=== PATIENT | male | born 1960 ===

== ENCOUNTER 2018-06-03 14:26 | Inpatient (IN) | payer OTHER, SELFPAY ==
[~2018-06-03 14:26] MED LIST: ISOVUE-370 76%-LOCM 1 ML ONE; Lidocaine 1% PF 5 ML VIAL ONE; PHENYLEPHRINE-NS 100 MCG/ML 10 ML SYRINGE ONE; PROPOFOL 200 MG/20 ML VIAL ONE; Succinylcholine Chloride 20 MG/ML 10 ml SYRINGE FS ONE
[2018-06-03] MEDS ORDERED: CEFAZOLIN 1 GM VIAL ONE (14:35)
[2018-06-03] MEDS ORDERED: Gentamicin 80 MG/2 ML VIAL ONE ×2 (14:36→15:01)
[2018-06-03 14:39] LABS: Base Excess-Venous -5.2 mmol/L (0 (+/- 2.5)); Bicarbonate (HCO3v) 21.1 mmol/L (1.0-85.0); CO2 Tension (PvCO2) 42.5 mmHg (41.0-51.0); Calcium, Ionized 1.06 mmol/L (1.12-1.32); Hemoglobin - Calc 15.5 g/dL (12.0-18.0); O2 Tension (PvO2) 24.4 mmHg (35.0-45.0); Potassium 3.2 mmol/L (3.4-4.7); T. Carbon Dioxide 22.4 mmol/L (1.0-85.0); pH (Venous) 7.303 (7.35-7.45); vO2 Saturation-calc 37.8 % (94-98)
[2018-06-03] MEDS ORDERED: Adacel (T-DAP) 0.5 ML VIAL ONE ×2 (14:41→14:42)
[2018-06-03] MEDS ORDERED: Fentanyl 100 MCG/2 ML VIAL ONE ×3 (14:43→18:43)
[2018-06-03] MEDS ORDERED: Dextrose 50% Abboject 50 ML SYRINGE SLOW IVP PRN (14:51)
[2018-06-03] MEDS ORDERED: Ondansetron HCl/PF 4 MG/2 ML Vial IVP PRN ×2 (14:51→18:49)
[2018-06-03] MEDS ORDERED: Ondansetron ODT 4 MG TAB PO PRN (14:51)
[2018-06-03] MEDS ORDERED: Dextrose 5% in Water 1,000 ML IV PRN (14:51)
[2018-06-03 14:52] LABS: #Eosinphils 0.1 thou/uL (0.0-0.7); #Lymphocytes 1.6 thou/uL (1.20-3.40); #Monocytes 1.2 thou/uL (0.11-0.59); %Basophils 0.3 % (0.0-1.0); %Eosinophils 0.6 % (0.0-10.0); %Lymphocytes 9.1 % (21.0-51.0); %Monocytes 6.7 % (0.0-10.0); %Neutrophils 83.4 % (42.0-75.0); Hemoglobin 13.9 g/dL (14.0-18.0); Mean Corpuscular HGB CONC 32.9 g/dL (32.0-36.0); Mean Corpuscular Hemoglobin 29.2 pg (27.0-31.0); Mean Corpuscular Volume 88.9 fL (78.0-98.0); Platelet Count 157 thou/uL (130-400); RBC Distribution Width 13.4 % (11.5-14.5); Red Blood Cell (RBC) Count 4.76 mill/uL (4.70-6.10)
--- NOTE | 2018-06-03 14:57 | CT ---
NONCONTRAST HEAD CT: History: Patient fell from a height of approximately 12 ft. Level II trauma. Comparison: None. FINDINGS: Slightly limited evaluation due to motion degradation. No parenchymal hemorrhage. No extraaxial hemat enrrique. No midline shift. Basilar cisterns are patent. Brain volume is age appropriate. Cortical fenton wh ite matter differentiation is preserved. Ventricles and sulci are patent and symmetric. Calvarium is intact. Adequate aeration of the sinuses and mastoid air cells. Old right lamina papyrac ea fracture and old right orbital floor fracture. IMPRESSION: No intracranial post-traumatic sequellae. POS: [facility]
[2018-06-03] MEDS ORDERED: Penicillin G Potassium 5 MILL.UNITS in Sodium Chloride 0.9% 100 ML IVPB SCH (15:00)
[2018-06-03] MEDS ORDERED: Lidocaine 1% w/Epinephrine 1:100K 20 ML VIAL ONE (15:02)
[2018-06-03] MEDS ORDERED: Calcium Chloride 1 GM/10 ML Abboject SYRINGE ONE (15:07)
--- NOTE | 2018-06-03 15:13 | RAD ---
CHEST ONE VIEW: History: Patient fell from a ladder. Level II trauma. Comparison: None. FINDINGS: One view chest: Normal cardiac silhouette. The pulmonary vessels and hilum are normal. Costophrenic angles are clear. No consolidation or mass. Lungs are hyperinflated. Chronic changes are noted. There are old left rib fractures. No pneumothorax on the supine projection. IMPRESSION: No acute cardiopulmonary process. POS: [facility]
--- NOTE | 2018-06-03 15:32 | RAD ---
ONE VIEW PELVIS: 06/03/18 HISTORY: Fall. Level II trauma. Pain. COMPARISON: None. FINDINGS: Bony pelvis is intact. Sacral ala are preserved. Contour of both femoral heads are maintained. Howeve r, there is a nondisplaced femoral neck fracture on the left. Right hip is unremarkable on this singl e projection. IMPRESSION: Left femoral neck fracture. POS: [facility]
--- NOTE | 2018-06-03 15:32 | CT ---
CT CERVICAL SPINE WITHOUT CONTRAST: HISTORY: The patient fell from a height of approximately 12 feet, off a ladder. Level II trauma. Post trauma tic pain. COMPARISON: None. TECHNIQUE: CT cervical spine is performed without contrast. Reformatted images are submitted for interpretation . FINDINGS: No craniocervical dissociation. The lateral masses of C1 and C2 articulate appropriately. There is appropriate articulation of the facets. There are degenerative changes of the facets without signifi cant malalignment. Intact odontoid process. Soft tissue neck structures are unremarkable. Varying degrees of central canal stenosis and foramina l narrowing, on the basis of degenerative change. Evaluation limited by technique. The upper mediastinum and lung apices are unremarkable. Cervical spine vertebral body height is maintained. No cervical spine fracture. IMPRESSION: No cervical spine fracture. The results of the head and cervical spine CT were discussed with Dr. Salas on 06/03/2018 at 2:56 p.m . CODE RONNIE POS: [facility]
--- NOTE | 2018-06-03 15:50 | CT ---
CHEST CT SCAN WITH IV CONTRAST ABDOMEN AND PELVIC CT SCAN WITH IV CONTRAST THORACIC SPINE CT SCAN WITH IV CONTRAST LUMBAR SPINE CT SCAN WITH IV CONTRAST 06/03/18 HISTORY: 57-year-old male with history of level II trauma, injury following a 12 foot fall off a ladder. CHEST, ABDOMEN AND PELVIC CT SCAN WITH IV CONTRAST: There is some chronic changes in both lungs, evidence for some emphysema and honeycombing evidence fo r chronic interstitial lung disease. No pneumothorax or pleural effusions. The mediastinum is unremar kable. No mediastinal hematoma. The liver, pancreas, gallbladder, spleen, and kidneys are unremarkable. Adrenal glands are unremarkab le. No evidence for free intraperitoneal fluid or retroperitoneal hematoma within the abdomen or pelv is. Normal appearing appendix. There is noted to be a minimally displaced oblique fracture through th e left femoral neck. IMPRESSION: Oblique very minimally displaced left femoral neck fracture. Chronic lung changes. No evidence for ot her significant acute posttraumatic process in the chest, abdomen or pelvis. THORACIC SPINE CT SCAN WITH IV CONTRAST LIMITED: Disc osteophytosis without fracture or dislocation. LUMBAR SPINE CT SCAN WITH IV CONTRAST LIMITED: Evidence for lumbar spondylosis. No acute fracture or dislocation. Report was given to Dr. Salas at 3:10 p.m. Code CR POS: [facility]
--- NOTE | 2018-06-03 15:52 | CON ---
DATE OF CONSULTATION: 06/03/2018 HISTORY OF PRESENT ILLNESS: We were asked by Trauma to see patient, he was trying to adjust an antenna on his roof, fell off the ladder 12-15 feet, does not recall the fall, but ended up crawling into his house to call for help. It was found that when he came in, he had a left femoral neck fracture and left open femur fracture. The patient currently is in trauma room, getting worked up imaging studies. He is able to answer all questions appropriately. He knows person, place, and time. He is in a significant amount of pain. The patient states his health is good. He has good sensations down the fractured leg. PAST MEDICAL HISTORY: Bleeding ulcer with no further followup. The patient does not see a doctor regularly. PAST SURGICAL HISTORY: "Abdominal Ulcer Patch" MEDICATIONS: None. ALLERGIES: None. FAMILY HISTORY: Noncontributory. SOCIAL HISTORY: No alcohol. Does smoke about a pack a day. Otherwise, he feels he is in a reasonably good health and only sees a doctor when problems arise. REVIEW OF SYSTEMS: No shortness of breath, chest pain. His only main complaint that he is a little chilled right now, he is nervous and he also has some significant left lower extremity pain, which is obvious. Rest of review of systems negative. PHYSICAL EXAMINATION: GENERAL: Well-nourished male, in mild distress. Speech clear, fluent, oriented. HEENT: He does have a symmetric face. Tongue midline. He does have a 1-2 cm laceration on his chin that has been repaired by Trauma. NECK: Feels supple. He is currently helped change out his cervical collar from trauma collar to an [place] collar. EXTREMITY: Upper extremity: He is moving these well, equal size, shape, symmetry normal bulk and tone. Left lower extremity: However, rotated, shortened and there is an open wound, but a hand's width above his knee. He has been given antibiotics by Dr. Toth for his open fracture. DP, PT pulses are equal and symmetric. He is able to move that left lower extremity, his toes , but it is quite a bit of pain in doing so. ASSESSMENT: 1. Fall 2. Open femur fracture on the left with a femoral neck fracture. PLAN: I spoke with patient. We will get him consented. We plan to do an external fixator with a washout of the open fracture and plan on putting some percutaneous screws into his femoral neck fracture stabilizing that and in 48 hours we plan to go back and wash out his wound and placed an intramedullary femoral nail. The patient is amenable to go forth with surgery. We will continue the 3 courses of antibiotics. He has gone through his stay for wound protection and infection prophylaxis. I have explained the risks and benefits of surgery and again he is amenable to go forth with surgery. Trauma will follow the patient for medical management. We have reviewed the x-rays and they are as above stated. MIGUEL ÁNGEL
--- NOTE | 2018-06-03 15:54 | RAD ---
RADIOGRAPH LEFT KNEE 2 VIEWS: 06/03/18 HISTORY: 57-year-old male status post acute traumatic injury to the left knee due to fall from height. FINDINGS: There is no dislocation. There is no evidence of fracture; but in general, a 3 or 4 view radiograph o f the knee is recommended to increase the sensitivity for the detection of nondisplaced and minimally displaced fractures. There is thickening of the patellar tendon. There is a suprapatellar soft tissu e density which could be hemarthrosis or joint effusion. There is edema in Hoffa's fat pad. Mild deg enerative changes at the patellofemoral compartment. Medial and lateral compartment joint spaces are maintained. IMPRESSION: 1. No fracture identified. 2. Suprapatellar density which could be a joint effusion or hemarthrosis. 3. Probable soft tissue injury in the region of the patellar tendon. POS: [facility]
--- NOTE | 2018-06-03 15:56 | RAD ---
TWO VIEWS LEFT HIP: 06/03/18 HISTORY: Level II trauma. Fall. FINDINGS: Nondisplaced left subcapital femoral fracture. Displaced one shaft width fracture involving the left femoral diaphysis with small fragmentation. Subcu air suggest a probable open fracture. IMPRESSION: 1. Open fracture of the left femoral diaphysis. 2. Left femoral neck fracture. POS: [facility]
[2018-06-03 15:58] LABS: INR-International Normal Ratio 1.1; PTT 30.2 SEC (22.9-36.1); Prothrombin Time 14.3 SEC (12.0-14.7)
[2018-06-03] MEDS ORDERED: Midazolam HCl 2 mg/2 ml Vial ONE (16:00)
[2018-06-03] MEDS ORDERED: Tobramycin Sulfate 1.2 GM VIAL ONE ×2 (16:02→16:03)
[2018-06-03] MEDS ORDERED: Neomycin-Polymyxin 1 ML AMP ONE ×2 (16:13→16:32)
--- NOTE | 2018-06-03 16:25 | HP ---
DATE OF ADMISSION: 06/03/2018 HISTORY OF PRESENT ILLNESS: Mr. Anne is a 57-year-old man who apparently fell off of a l adder landing approximately 12 feet to his left side. The patient suffered a brief loss of conscious ness. He was transported by ground EMS to [facility]. He arrived within 1 hour of the fall. He was complaining of severe left-sided hip and leg pain. [place] coma scale upon arrival is noted at 15. The patient was moving all extremities and following commands. PAST MEDICAL HISTORY: Remarkable for peptic ulcerative disease. SURGICAL HISTORY: Pertinent for exploratory laparotomy and repair of a bleeding peptic ulcer. SOCIAL HISTORY: The patient is and lives at home with his . 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 He admits to smoking 1 pack of cigarettes per day, has done so for over 35 years. Denies any et hanol or illicit drug abuse. FAMILY HISTORY: Noncontributory for this patient's age. PREHOSPITAL MEDICATION: He takes Aleve occasionally for arthritic disease. ALLERGIES: Patient denies any known drug allergies. REVIEW OF SYSTEMS: Ten point review of systems essentially unremarkable except for as stated in past medical history and chief complaint. PHYSICAL EXAMINATION: GENERAL: This reveals a 57-year-old normally developed man who is otherwise coherent and interactive and appears stated age. The patient is alert and oriented x3. Patient appeared to be in the modera te acute distress secondary to severe lower extremity pain. VITAL SIGNS: Initial vital signs includes blood pressure 123/75, pulse 67, respiratory rate is 18, t emperature 97.4 degrees Fahrenheit, oxygen saturation 97% on room air. HEENT: Examination reveals normocephalic and atraumatic. The pupils are equal, round, reactive to l ight and accommodation. Extraocular muscles are intact bilaterally. No sclerae icterus is present. Oral mucosa is pink and moist. No lesions noted. He has a 3 cm chin laceration which was not bleed ing at the time of my evaluation. CHEST: Chest wall is stable. No gross deformities or step-offs present. HEART: Reveals regular rate and rhythm, no murmurs or gallops auscultated. LUNGS: Clear to auscultation bilaterally. Breathing is unlabored. ABDOMEN: Soft, nontender and nondistended. Bowel sounds in all four quadrants appear normoactive. Liver and spleen nonpalpable below costal margin. Pelvis is stable. He has point tenderness to the left pelvis which is consistent with fracture as noted in subsequent x-ray. GENITOURINARY: Examination reveals bilateral descended testicles and normal male genitalia. He has no blood in his urethral meatus. There was no ecchymosis or hematoma of the scrotum or perineum. EXTREMITIES: Reveals 2+ radial and pedal pulses bilaterally. He has no ankle edema present. The le ft leg is shortened. He has a gross deformity of the left femur corresponding to mid shaft, open fem ur fracture with gross contamination with debris. He also has point tenderness in this palpation of the left pelvis. MUSCULOSKELETAL: Examination reveals 5/5 muscle strength in bilateral upper and right lower extremit ies. Range of motion about the left lower extremity is restricted due to painful deformities. Thora cic and lumbar spine nontender to palpation. Cervical spine was maintained in neutral position due t o distracting injuries. Palpation of the cervical spine reveals no midline tenderness. NEUROLOGIC: Examination reveals no focal neurologic deficits present. PERTINENT LABORATORY DATA: Today includes CBC with 18,000 white blood cells, hemoglobin and hematocr it 13.9 and 42.4 respectively, platelet count is 157,000. Venous blood gas; pH is 7.3, bicarbonate is 21, pCO2 is 42.5. Venous oxygen saturation is 37.8%. Ba se excess is negative 5.2. Metabolic profile: Sodium 139, potassium 3.2, chloride is 106, bicarbona te is 12, creatinine is 1.23, ionized calcium is 1.06, glucose is 115. IMAGING DATA: I have personally reviewed all radiographic studies including an unremarkable brain an d cervical spine CT scan. CT scan of the chest is unremarkable for any acute intrathoracic pathology. CT scan of the abdomen a nd pelvis revealed no acute intra-abdominal pathology. Bony reconstruction; however, reveals a nondi splaced left femoral neck fracture. X-ray of the pelvis is remarkable for a nondisplaced left femor al neck fracture. X-ray of the left femur reveals complete displaced angulated midshaft left femur f racture. X-ray of the left knee is unremarkable for any fractures or dislocation. IMPRESSION: 1. Status post fall to a feet from a ladder. 2. 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 3. Complete displaced angulated class 3B open left femur fracture. 4. Nondisplaced left femoral neck fracture. 5. Acute blood loss anemia. 6. Acute hypocalcemia. 7. A 3 cm chin laceration. PLAN: 1. Repair chin laceration. 2. Orthopedic surgical consultation regarding the multiple orthopedic injuries to lower extremities. 3. Correct abnormal electrolytes. 4. Broad spectrum antibiotics and tetanus booster was provided in emergency department within 1 hour of arrival. The above findings and plan discussed with the patient who indicates understanding of the information given. The patient has given consent for this admission and surgical intervention.
[2018-06-03] MEDS ORDERED: Promethazine HCl 25 MG/ML VIAL IM PRN (18:49)
[2018-06-03] MEDS ORDERED: Promethazine HCl 25 MG/ML VIAL SLOW IVP PRN (18:49)
[2018-06-03] MEDS: Acetaminophen 500 MG TAB PO SCH ×2 (20:18→23:23)
[2018-06-03] MEDS: Ketorolac Tromethamine 30 MG/ML VIAL IVP SCH ×2 (20:18→23:23)
[2018-06-03] MEDS: traMADol HCl 50 MG TAB PO SCH ×2 (20:19→23:22)
[2018-06-03] MEDS: Sodium Chloride 0.9% 1,000 ML IV SCH (20:57)
[2018-06-03] MEDS: Famotidine 20 MG TAB PO SCH (20:57)
[2018-06-03] MEDS: cefTRIAXone\\ROCEPHIN 2 GM in Sodium Chloride 0.9% 100 ML IVPB SCH (20:58)
[2018-06-03 22:18] VITALS: BMI 23.5
[2018-06-03] MEDS: metroNIDAZOLE 500 MG in Premix Bag 1 BAG IVPB SCH (22:55)
[2018-06-04] MEDS: Sodium Chloride 0.9% 1,000 ML IV SCH ×3 (01:19→20:24)
[2018-06-04] MEDS: Ketorolac Tromethamine 30 MG/ML VIAL IVP SCH ×4 (05:47→23:58)
[2018-06-04] MEDS: metroNIDAZOLE 500 MG in Premix Bag 1 BAG IVPB SCH ×3 (05:47→21:55)
[2018-06-04] MEDS: Acetaminophen 500 MG TAB PO SCH ×4 (05:47→23:59)
[2018-06-04] MEDS: traMADol HCl 50 MG TAB PO SCH ×4 (06:13→23:59)
[2018-06-04 06:20] LABS: #Eosinphils 0.1 thou/uL (0.0-0.7); #Monocytes 0.6 thou/uL (0.11-0.59); #Neutrophils 3.9 thou/uL (1.40-6.50); %Basophils 0.5 % (0.0-1.0); %Eosinophils 0.9 % (0.0-10.0); %Lymphocytes 30.5 % (21.0-51.0); %Monocytes 8.6 % (0.0-10.0); %Neutrophils 59.5 % (42.0-75.0); Hemoglobin 11.7 g/dL (14.0-18.0); Mean Corpuscular Volume 87.9 fL (78.0-98.0); Mean Platelet Volume 8.6 fL (7.4-10.4); Platelet Count 122 thou/uL (130-400); RBC Distribution Width 13.4 % (11.5-14.5); Red Blood Cell (RBC) Count 4.05 mill/uL (4.70-6.10); White Blood Cell (WBC) Count 6.6 thou/uL (4.8-10.8)
[2018-06-04 06:25] LABS: Anion Gap 10 mmol/L (10-20); BUN (Urea Nitrogen) 10 mg/dL (8.4-25.7); Calc. Creatinine Clearance 90 mL/min (70-130); Calcium 7.9 mg/dL (7.8-10.44); Carbon Dioxide 20 mmol/L (22-29); Chloride 111 mmol/L (98-107); Estimated GFR-MDRD 75; Glucose 90 mg/dL (70-105); Magnesium 1.5 mg/dL (1.6-2.6); Phosphorus 3.1 mg/dL (2.3-4.7); Potassium 4.1 mmol/L (3.5-5.1); Sodium 137 mmol/L (136-145)
[2018-06-04] MEDS: Famotidine 20 MG TAB PO SCH ×2 (08:54→20:25)
[2018-06-04] MEDS ORDERED: Enoxaparin Sodium 40 MG/0.4 ML SYRINGE SC SCH (09:00)
--- NOTE | 2018-06-04 10:00 | RAD ---
RADIOGRAPH LEFT FEMUR TWO VIEWS: 06/03/2018 6:05 p.m. HISTORY: A 57-year-old male with a left femur fracture. COMPARISON: 06/03/2018 at 2:58 p.m. TECHNIQUE: A total of four small field of view fluoroscopic spot images obtained with the C-arm. FINDINGS: The mid femoral diaphyseal fracture has been reduced. There has been interval placement of three scr ews along the long axis of the femoral neck, fixating the femoral neck fracture. There has been inte rval placement of a metallic plate and screws at the proximal aspect of the femoral diaphysis, where there is no fracture. IMPRESSION: 1. Ongoing open reduction and internal fixation of the left femur. 2. Heavy plate and screw hardware has been placed in the left proximal femoral shaft. 3. The mid femoral shaft fracture has been reduced but, on the provided current images, there is no hardware bridging that fracture. 4. Interval fixation of femoral neck fracture with three screws. POS: [facility]
--- NOTE | 2018-06-04 17:27 | PRG ---
DATE OF SERVICE: 06/04/2018 SUBJECTIVE: Mr. Anne is a 57-year-old male status post fall from ladder resulting in an open left mid shaft femur and proximal femur fracture. He is postop day #1 status post washout and external fi xation of the mid shaft fracture and internal fixation of the proximal fracture. There were no acute overnight events. Upon my evaluation this morning, the patient states his pain is well controlled. He is relatively hypotensive with a cortisol level of 7.8. Otherwise, he vocalized no complaint thi s a.m. OBJECTIVE: VITAL SIGNS: Temperature 97.9, pulse 61, respirations 16, O2 sat 97% on room air, blood pressure 197 /61. GENERAL: Elderly male, in no acute distress, resting in bed. PULMONARY: Normal work of breathing. Symmetric rise. CARDIOVASCULAR: Regular rate and rhythm. No obvious murmurs, rubs or gallops. GASTROINTESTINAL: Abdomen is soft, nontender, nondistended. MUSCULOSKELETAL: Left lower extremity, external fixation device in place. He is neurovascularly int act distal to the side of his injury. Bilateral upper extremities and right lower extremity within n ormal limits. NEUROLOGIC: GCS of 15. No focal deficit noted. ASSESSMENT: 1. Status post fall from ladder. 2. Acute traumatic pain. 3. Acute blood loss anemia. 4. Chin laceration. 5. Concussion, improved. 6. Class 3B open left femur fracture. 7. Left femoral neck fracture. 8. Adrenal insufficiency. PLAN: The patient has been discussed with Orthopedic Surgery. They plan for a repeat trip to the OR tomorrow for washout of wound and possible definitive fixation. The patient should be continued on antibiotics as ordered. We will initiate stress dose steroids for adrenal insufficiency and hypotens ion. Otherwise, the patient should be worked with therapy today and be n.p.o. at midnight in anticip ation for surgery tomorrow. Pain management as ordered. Plan of care was discussed with the patient . All questions were answered at the time of this dictation. The patient has been discussed with arsen luna attending.
--- NOTE | 2018-06-04 20:05 | OP ---
DATE OF SURGERY: 06/03/2018 PREOPERATIVE DIAGNOSES: 1. Grade IIIB open femoral shaft fracture, left. 2. Left femoral neck fracture. POSTOPERATIVE DIAGNOSES: 1. Grade IIIB open femoral shaft fracture, left. 2. Left femoral neck fracture. SURGICAL PROCEDURES: 1. Open reduction and application of spanning external fixator, left femur. 2. Percutaneous screw fixation of left femoral neck. 3. Irrigation and debridement of left open femur fracture including skin, subcutaneous tissue, muscl e, and bone. 4. Antibiotic B-pouch creation for left thigh wound. ANESTHESIA: General. SURGEON: Santos Saxena M.D. GAS STATION CLERK: Lloyd Leonard PA-C. BLOOD LOSS: 150 mL IMPLANTS: 1. Synthes large external fixator with a single bar uniplane construct. 2. Synthes 7.3 mm cannulated screws x3. 3. Total of 20, tobramycin and polymethyl methacrylate antibiotic beads strong on an Ethibond suture for the left thigh. COMPLICATIONS: None. DRAINS: None. SPECIMEN: None. OUTCOME: Grossly contaminated femur preop with debridement and removal of gross contamination succes sful. INDICATIONS: The patient is a 57-year-old gentleman status post fall from a height from a ladder tanvir taining a contaminated open femoral shaft fracture at the mid shaft as well as femoral neck fracture with mild displacement. After discussion regarding the risks and benefits, we decided to proceed wit h irrigation and debridement of this contaminated open femur fracture, application of a spanning exte rnal fixator due to the contaminated nature of the femur, need for additional debridement, and antici pated closed versus open reduction and screw fixation of his femoral neck. Informed consent has been obtained. I believe all questions answered. DESCRIPTION OF PROCEDURE: The patient was brought to the operating room and a timeout performed foll owed by induction of general anesthesia. The patient was then positioned supine on the fracture tabl e and a sterile prep and drape was performed of the left anterior and lateral thigh. At this point, the open femur fracture was clearly visible. There was found to be grass, some leaf and dirt around the end of the femur that was protruding through the skin. This was debrided using a combination of sharp debridement and Pulsavac irrigation. The debridement continued sharply through the skin into t he subcutaneous tissue down to muscle with some necrotic or questionably viable muscle excised sharpl y and then some detached bone with no soft tissue attachment encountered and this too removed from th e wound. A total of 10 liters of normal saline with antibiotic irrigant added was irrigated throu gh the wound with Pulsavac in addition to the sharp debridement. Following this, debridement, there was found to be no further evidence of gross contamination. As such, using the traumatic wound, the fracture was reduced, held in place with a tenaculum and then a uniplanar anterior external fixator w as applied under C-arm guidance, 2 pins were placed proximal to the fracture into placed distal. Aga in, under C-arm guidance once appropriately positioned, a unilateral uniplanar frame was applied hold ing the femur in near anatomic alignment. At the completion of this, polymethyl methacrylate with 3. 6 grams of tobramycin was mixed on the back table and then an antibiotic bead chain was created using Ethibond suture and hand packing the beads around the suture. Once the cement had healed that had f ully cured, the beads were packed in the open traumatic wound down to the level of the femur fracture . This was then followed by drying of the skin and then laid in an iodoform dressing over the top to make it water impermeable. The ex-fix pins were then dressed with Xeroform gauze and a Kerlix roll. At this point in time, the sterile prep and drape was discontinued and removed. The leg was then p laced in gentle longitudinal traction and with internal rotation, the femoral neck fracture could be reduced anatomically. Given this successful reduction, we decided to proceed with percutaneous place ment of the cannulated screws. A second sterile prep and drape was performed of the lateral thigh pr epping out the external fixator. Next, a small incision was made just distal to the greater trochant er and then three threaded guidewires were passed from the lateral cortex of the femur up the femoral neck into the femoral head. This was then followed by drilling of the lateral cortex of the femur a nd then placement of appropriate length cannulated screws, getting excellent compression across the f racture with the fracture essentially disappearing with compression and anatomic alignment. Final AP , lateral C-arm images were then obtained of the hip and then this wound was closed in layers with 2- 0 Vicryl and crystal. A Xeroform gauze and tape dressing was applied to it, and then patient was tra nsferred to recovery room in stable condition with plans to return to the operating room in approxima tely 36 hours for repeat irrigation, debridement, and anticipated retrograde nail placement for the f emoral shaft fracture.
[2018-06-04] MEDS: cefTRIAXone\\ROCEPHIN 2 GM in Sodium Chloride 0.9% 100 ML IVPB SCH (20:24)
[2018-06-04] MEDS: Hydrocortisone Sod Succ/PF 100 mg/2 ml Vial IVP SCH (21:54)
[2018-06-05] MEDS: Sodium Chloride 0.9% 1,000 ML IV SCH ×3 (00:58→10:33)
[2018-06-05 04:48] LABS: #Eosinphils 0.1 thou/uL (0.0-0.7); #Lymphocytes 1.2 thou/uL (1.20-3.40); #Monocytes 0.5 thou/uL (0.11-0.59); #Neutrophils 6.4 thou/uL (1.40-6.50); %Basophils 0.5 % (0.0-1.0); %Eosinophils 0.7 % (0.0-10.0); %Lymphocytes 14.7 % (21.0-51.0); %Monocytes 6.6 % (0.0-10.0); %Neutrophils 77.5 % (42.0-75.0); Hemoglobin 11.3 g/dL (14.0-18.0); Mean Corpuscular HGB CONC 33.8 g/dL (32.0-36.0); Mean Corpuscular Volume 88.6 fL (78.0-98.0); Mean Platelet Volume 8.3 fL (7.4-10.4); Platelet Count 110 thou/uL (130-400); RBC Distribution Width 13.5 % (11.5-14.5); Red Blood Cell (RBC) Count 3.76 mill/uL (4.70-6.10); White Blood Cell (WBC) Count 8.2 thou/uL (4.8-10.8)
[2018-06-05 04:58] LABS: Anion Gap 14 mmol/L (10-20); BUN (Urea Nitrogen) 15 mg/dL (8.4-25.7); Calc. Creatinine Clearance 89 mL/min (70-130); Calcium 7.7 mg/dL (7.8-10.44); Carbon Dioxide 15 mmol/L (22-29); Chloride 111 mmol/L (98-107); Estimated GFR-MDRD 74; Glucose 99 mg/dL (70-105); Magnesium 1.4 mg/dL (1.6-2.6); Phosphorus 2.9 mg/dL (2.3-4.7); Sodium 136 mmol/L (136-145)
[2018-06-05] MEDS: metroNIDAZOLE 500 MG in Premix Bag 1 BAG IVPB SCH ×3 (05:16→22:47)
[2018-06-05] MEDS: Ketorolac Tromethamine 30 MG/ML VIAL IVP SCH ×4 (05:17→22:47)
[2018-06-05] MEDS: Acetaminophen 500 MG TAB PO SCH ×4 (05:17→22:46)
[2018-06-05] MEDS: traMADol HCl 50 MG TAB PO SCH ×4 (05:17→22:59)
[2018-06-05] MEDS: Hydrocortisone Sod Succ/PF 100 mg/2 ml Vial IVP SCH ×3 (05:19→22:47)
[2018-06-05] MEDS ORDERED: Neomycin-Polymyxin 1 ML AMP ONE (06:34)
[2018-06-05] MEDS ORDERED: Fentanyl 100 MCG/2 ML VIAL ONE ×3 (08:13→09:41)
[2018-06-05] MEDS: Famotidine 20 MG TAB PO SCH ×2 (08:28→20:07)
[2018-06-05] MEDS: Nicotine 21 MG PATCH TD SCH ×2 (08:28→10:33)
[2018-06-05] MEDS ORDERED: Promethazine HCl 25 MG/ML VIAL SLOW IVP PRN (09:42)
[2018-06-05] MEDS ORDERED: Ondansetron HCl/PF 4 MG/2 ML Vial IVP PRN (09:42)
[2018-06-05] MEDS ORDERED: Promethazine HCl 25 MG/ML VIAL IM PRN (09:42)
--- NOTE | 2018-06-05 10:40 | OP ---
DATE OF SURGERY: 06/05/2018 PREOPERATIVE DIAGNOSES: 1. Left grade 3 femoral shaft fracture (status post external fixator and bead pouch). 2. Left femoral neck fracture (status post cannulated screw fixation). POSTOPERATIVE DIAGNOSES: 1. Left grade 3 femoral shaft fracture (status post external fixator and bead pouch). 2. Left femoral neck fracture (status post cannulated screw fixation). SURGICAL PROCEDURES: 1. Retrograde intramedullary nail stabilization of left femoral shaft 2. Irrigation and debridement of grade III open left femoral shaft fracture. 3. Removal of external fixator, left femur. 4. Application of wound VAC to left anterior thigh wound. ANESTHESIA: General. SURGEON: Dr. Saxena. IMPLANTS: Synthes 12 x 380 mm retrograde intramedullary nail with three cross lock screws. SPECIMEN: Explanted external fixator. COMPLICATIONS: None. DRAINS: Wound VAC x1. SPECIMEN: None. INDICATIONS: The patient is a 57-year-old gentleman status post fall from ladder sustaining a grade III open femoral shaft fracture with ipsilateral femoral neck fracture. The patient is now status po st stabilization of femoral neck fracture and application of external fixator with creation of the be ad pouch for the open femur fracture. He is now taken back to the operating room for repeat irrigati on, debridement, and anticipated conversion from external fixator to intramedullary nail. Informed c onsent has been obtained. I believe all questions have been answered. DESCRIPTION OF PROCEDURE: Patient was brought to the operating room and a timeout performed followed by induction of general anesthesia. Next, patient was positioned supine on the radiolucent table an d then a sterile prep and drape was performed of the left lower extremity. Next, the traumatic wound was again explored this at the anterior thigh. There was found to be just a very minor amount of fo reign material that was sharply debrided with sharp debridement through skin, subcutaneous tissue, an d muscle. Once all encountered, foreign debris was removed. The wound was irrigated with 5 liters o f normal saline with Pulsavac. Next, a bone reduction forceps was placed across the fracture through the traumatic wound and then the external fixator was removed. The fracture was then manipulated sl ightly and then held in place in an anatomic alignment with this bone tenaculum. Next, a midline ant erior knee incision was made over the patellar tendon. After skin was sharply incised, dissection wa s carried down bluntly to the underlying peritenon. The peritenon was incised and then retracted med ially and laterally. A medial parapatellar tendon approach to the knee was then performed. A portio n of the fat pad was detached from the undersurface of the parapatellar region and this allowed for v isualization of the intercondylar notch. A threaded guidewire was then passed at an appropriate star ting point for the retrograde nail up into the femoral canal. Next, the reamer was passed over this guidewire gaining access to the canal. A ball-tipped guidewire was then passed up the shaft of the f emur into the intertrochanteric region. Next, reaming was started at 9.5 mm, some simple chatter was encountered at 12.5 mm and as such further reaming was stopped at 13. A retrograde nail was then in serted in standard fashion. Next, two distal cross lock screws were applied. The fracture was compr essed and then a single anterior to posterior interlocking screw was applied through a small stab wou nd anteriorly. After completion of this, there was found to be near anatomic alignment of both fract ures. The midline anterior knee wound was then thoroughly irrigated and closed in layers with 0 Vicr yl for the peritenon, 2-0 Vicryl subcutaneously, and crystal for the skin. The small stab wounds for the cross lock screws were closed with crystal as were the external fixator pin sites. The traumati c anterior wound was then dressed with a wound VAC. At the completion of dressing, patient was then transferred to recovery room in stable condition. There were no complications. The patient tolerate d the procedure well.
--- NOTE | 2018-06-05 13:10 | RAD ---
LEFT FEMUR INTRAOPERATIVE FLUOROSCOPY TWO VIEWS: HISTORY: Femur fracture. FINDINGS: Intraoperative fluoroscopy was provided for internal fixation, as performed by Dr. Saxena. Spot fl uoroscopic images show placement of a long medullary dario with fixation screws. Alignment is anatomic . POS: [facility]
[2018-06-05] MEDS ORDERED: Ondansetron HCl/PF 4 MG/2 ML Vial ONE (14:41)
[2018-06-05] MEDS ORDERED: PROPOFOL 200 MG/20 ML VIAL ONE (14:41)
[2018-06-05] MEDS ORDERED: Ketorolac Tromethamine 30 MG/ML VIAL ONE (14:41)
[2018-06-05] MEDS ORDERED: Dexamethasone 20 MG/5 ML VIAL ONE (14:41)
[2018-06-05] MEDS: Gabapentin 300 MG CAP PO SCH ×2 (14:44→20:07)
[2018-06-05] MEDS: Cyclobenzaprine 10 MG TAB PO PRN (18:39)
--- NOTE | 2018-06-05 18:41 | PRG ---
DATE OF SERVICE: 06/05/2018 SUBJECTIVE: This is a 57-year-old male status post fall from ladder with resultant left mid shaft and proximal femur fracture. He is postop day #2 status post washout and internal fixation of proximal fracture and postop day 0 of removal of ex-fix and fixation of midshaft femur fracture. There were no acute overnight events. I am evaluating them postoperatively. Upon my evaluation, the patient has a chief complaint of blurred and double vision. He states that this has been constant since his admission, although this is the first time he has mentioned it to our team. He reports that it is worse binocularly versus monocular. OBJECTIVE: VITAL SIGNS: Temperature 97.9, pulse 69, respirations 16, O2 sat 94% on room air, blood pressure 103/55. GENERAL: Elderly male in no acute distress, resting in bed. HEENT: Eyes: Pupils are PERRL. Extraocular movements are intact. PULMONARY: Normal work of breathing. Symmetric rise. CARDIOVASCULAR: Regular rate and rhythm, no obvious murmurs, rubs or gallops. GASTROINTESTINAL: Soft, nontender, nondistended. EXTREMITIES: Left lower extremity wound VAC is in place. Other surgical dressings are clean, dry, and intact. He is neurovascularly intact to the side of his injury. NEUROLOGIC: GCS is 15. There is no focal or sensory deficit noted. His vision is grossly intact. ASSESSMENT: 1. Status post fall from ladder. 2. Acute traumatic pain. 3. Acute blood loss anemia, stable. 4. Chin laceration. 5. Concussion, improved. 6. Class IIIB open left femur fracture status post operative repair, postoperative day 0. 7. Left femoral neck fracture status post repair, postoperative day 2. 8. Adrenal insufficiency. PLAN: Continue to observe closely for any neuro changes. The patient's vision changes are persistent despite the use of his glasses; however, they are stable and reportedly unchanged since admission. He did have a negative head CT on admission. He remains a GCS of 15. There is no focal deficit or sensory deficit at this time. Add lubricating eyedrops as dry eye may be a contributing factor. Pain management as ordered. Continue PT and OT. Continue incentive spirometry and pulmonary toileting. I have discussed the case with case management to evaluate for final disposition given patient's need for wound VAC. Plan of care was discussed with the patient and family at bedside. All questions were answered at the time of this dictation. Patient has been discussed with trauma attending. MIGUEL ÁNGEL
[2018-06-05] MEDS: cefTRIAXone\\ROCEPHIN 2 GM in Sodium Chloride 0.9% 100 ML IVPB SCH (20:06)
[2018-06-06] MEDS: Ketorolac Tromethamine 30 MG/ML VIAL IVP SCH ×3 (05:29→17:32)
[2018-06-06] MEDS: Hydrocortisone Sod Succ/PF 100 mg/2 ml Vial IVP SCH ×3 (05:29→14:37)
[2018-06-06] MEDS: Acetaminophen 500 MG TAB PO SCH ×3 (05:29→17:31)
[2018-06-06] MEDS: traMADol HCl 50 MG TAB PO SCH ×3 (05:30→17:32)
[2018-06-06] MEDS: Famotidine 20 MG TAB PO SCH ×2 (08:22→20:30)
[2018-06-06] MEDS: Gabapentin 300 MG CAP PO SCH ×3 (08:23→20:30)
[2018-06-06] MEDS: Nicotine 21 MG PATCH TD SCH (08:23)
[2018-06-06 09:44] LABS: #Lymphocytes 0.9 thou/uL (1.20-3.40); #Monocytes 0.7 thou/uL (0.11-0.59); #Neutrophils 9.5 thou/uL (1.40-6.50); %Basophils 0.2 % (0.0-1.0); %Eosinophils 0.1 % (0.0-10.0); %Monocytes 5.9 % (0.0-10.0); %Neutrophils 85.8 % (42.0-75.0); Hemoglobin 10.8 g/dL (14.0-18.0); Mean Corpuscular Hemoglobin 29.5 pg (27.0-31.0); Mean Corpuscular Volume 89.3 fL (78.0-98.0); Mean Platelet Volume 8.4 fL (7.4-10.4); Platelet Count 156 thou/uL (130-400); RBC Distribution Width 13.6 % (11.5-14.5); Red Blood Cell (RBC) Count 3.67 mill/uL (4.70-6.10)
[2018-06-06] MEDS: Cyclobenzaprine 10 MG TAB PO PRN ×2 (09:54→20:32)
[2018-06-06 10:08] LABS: Anion Gap 14 mmol/L (10-20); BUN (Urea Nitrogen) 16 mg/dL (8.4-25.7); Calc. Creatinine Clearance 91 mL/min (70-130); Calcium 7.7 mg/dL (7.8-10.44); Carbon Dioxide 19 mmol/L (22-29); Chloride 110 mmol/L (98-107); Estimated GFR-MDRD 76; Glucose 140 mg/dL (70-105); Potassium 3.6 mmol/L (3.5-5.1); Sodium 139 mmol/L (136-145)
[2018-06-06] MEDS: Artificial Tear Sol 15 ML BOT EA EYE PRN (11:16)
[2018-06-06] MEDS ORDERED: Hydrocortisone Sod Succ/PF 100 mg/2 ml Vial IVP SCH (14:25)
[2018-06-06] MEDS ORDERED: Enoxaparin Sodium 40 MG/0.4 ML SYRINGE SC SCH (14:30)
--- NOTE | 2018-06-06 14:49 | PRG ---
DATE OF SERVICE: 06/06/2018 SUBJECTIVE: This is a 57-year-old male status post fall from ladder with resultant left mid shaft an d proximal femur fracture. He is postop day #3 status post washout and internal fixation of proximal fracture and postop day #1 status post external fixator removal and fixation of the midshaft femur f racture. There were no acute overnight events. Upon my evaluation this morning, the patient's pain is well controlled and he has worked with physical therapy. He states that his blurred vision is sta ble, but persistent. He localizes no other complaint. OBJECTIVE: VITAL SIGNS: Temperature 97.8, pulse 57, respirations 16, O2 sat 98% on room air, blood pressure 127 /71. GENERAL: Resting in bed in no acute distress. PULMONARY: Normal work of breathing. Symmetric rise. CARDIOVASCULAR: Regular rate and rhythm, no obvious murmurs, rubs or gallops. GASTROINTESTINAL: Soft, nontender, nondistended. MUSCULOSKELETAL: Moves all extremities x4. Left lower extremity wound VAC is in place. NEUROLOGIC: GCS is 15. ASSESSMENT: 1. Status post fall from ladder. 2. Acute traumatic pain. 3. Chin laceration. 4. Concussion, improved. 5. Class IIIB open left femur fracture status post operative repair, postop day #1. 6. Left femoral neck fracture status post repair, postop day #3. 7. Adrenal insufficiency. PLAN: Continue IV antibiotics per Orthopedic Surgery recommendations for total of 72 hours postopera tively. Continue wound VAC and dressing and wound care. Continue to monitor the patient's vision. Patient is now normotensive. We will decrease stress steroid dosage and add DVT prophylaxis. Contin ue PT, OT. Continue to encourage incentive spirometry and mobility. Plan of care was discussed with patient and family at bedside. All questions were answered at the time of this dictation. Patient has been discussed with attending.
[2018-06-06] MEDS ORDERED: Sodium Chloride 0.9% 500 ML IVPB SCH (17:30)
[2018-06-06] MEDS ORDERED: Tamsulosin HCl 0.4 MG CAP PO SCH (18:45)
[2018-06-06] MEDS: cefTRIAXone\\ROCEPHIN 2 GM in Sodium Chloride 0.9% 100 ML IVPB SCH (20:30)
[2018-06-07] MEDS: Hydrocortisone Sod Succ/PF 100 mg/2 ml Vial IVP SCH ×4 (00:07→22:19)
[2018-06-07] MEDS: Ketorolac Tromethamine 30 MG/ML VIAL IVP SCH ×2 (00:07→06:31)
[2018-06-07] MEDS: traMADol HCl 50 MG TAB PO SCH ×4 (00:08→17:17)
[2018-06-07] MEDS: Acetaminophen 500 MG TAB PO SCH ×4 (00:08→17:17)
[2018-06-07 05:29] LABS: #Eosinphils 0.1 thou/uL (0.0-0.7); #Lymphocytes 1.7 thou/uL (1.20-3.40); #Monocytes 0.6 thou/uL (0.11-0.59); #Neutrophils 5.6 thou/uL (1.40-6.50); %Basophils 0.3 % (0.0-1.0); %Eosinophils 0.6 % (0.0-10.0); %Lymphocytes 21.7 % (21.0-51.0); %Monocytes 7.4 % (0.0-10.0); Hemoglobin 9.7 g/dL (14.0-18.0); Mean Corpuscular HGB CONC 33.6 g/dL (32.0-36.0); Mean Corpuscular Hemoglobin 29.7 pg (27.0-31.0); Mean Corpuscular Volume 88.5 fL (78.0-98.0); Mean Platelet Volume 9.4 fL (7.4-10.4); Platelet Count 129 thou/uL (130-400); RBC Distribution Width 13.6 % (11.5-14.5); Red Blood Cell (RBC) Count 3.26 mill/uL (4.70-6.10)
[2018-06-07 05:49] LABS: Anion Gap 8 mmol/L (10-20); BUN (Urea Nitrogen) 17 mg/dL (8.4-25.7); Calc. Creatinine Clearance 97 mL/min (70-130); Calcium 7.8 mg/dL (7.8-10.44); Carbon Dioxide 23 mmol/L (22-29); Chloride 111 mmol/L (98-107); Estimated GFR-MDRD 81; Glucose 108 mg/dL (70-105); Sodium 138 mmol/L (136-145)
[2018-06-07 05:55] LABS: Phosphorus 1.7 mg/dL (2.3-4.7)
[2018-06-07] MEDS: Tamsulosin HCl 0.4 MG CAP PO SCH (08:17)
[2018-06-07] MEDS: Gabapentin 300 MG CAP PO SCH ×3 (08:17→21:29)
[2018-06-07] MEDS: Famotidine 20 MG TAB PO SCH ×2 (08:17→21:28)
[2018-06-07] MEDS: Nicotine 21 MG PATCH TD SCH (08:17)
[2018-06-07] MEDS: Ibuprofen 600 MG TAB PO SCH ×2 (10:28→17:17)
[2018-06-07] MEDS: Artificial Tear Sol 15 ML BOT EA EYE PRN (11:38)
--- NOTE | 2018-06-07 12:25 | PRG ---
DATE OF SERVICE: 06/07/2018 SUBJECTIVE: This is a 57-year-old male status post fall from ladder with open left femur fracture an d proximal femur fracture. He is postop day #4 status post washout and internal fixation of proximal femur fracture, postop day #2 status post external fixator removal and fixation of a mid shaft femur fracture. There were no acute overnight events. Upon our evaluation this morning, the patient stat es the pain remains well controlled and his blurred vision is stable. He vocalizes no other complain ts. OBJECTIVE: VITAL SIGNS: Temperature 97.9, pulse 48, respirations 16, O2 sat 98% on room air, blood pressure 128 /75. GENERAL: Sitting in a chair, out of bed, in no acute distress. PULMONARY: Normal work of breathing. Symmetric rise. CARDIOVASCULAR: Regular rate and rhythm. GASTROINTESTINAL: Abdomen is soft, nontender, nondistended. MUSCULOSKELETAL: Left wound VAC is in place. NEUROLOGIC: No focal deficit is noted. LABORATORY DATA: WBC 8.0, hemoglobin 9.7, hematocrit 28.9, platelet count 129. Sodium 138, potassiu m 4.0, chloride 111, carbon dioxide 23, BUN 17, creatinine 0.95, glucose 108, phosphorus 1.7, magnesi um 2.0. ASSESSMENT: 1. Status post fall from ladder. 2. Acute traumatic pain. 3. Laceration. 4. Concussion approved. 5. Open left femur fracture status post operative repair, postoperative day 2. 6. Left femoral neck fracture status post repair, postoperative day #4. 7. Adrenal insufficiency, stable. 8. Electrolyte abnormality, hypophosphatemia. 9. Diplopia. PLAN: Replete the abnormal electrolytes. Add eye patch for persistent diplopia and recommend outpat ient ophthalmology consult. Continue IV antibiotics. Continue wound care. Continue to wean steroid dosage. Continue PT, OT and incentive spirometry. Plan of care was discussed with the patient and all questions were answered at the time of this dictation. Patient has been seen and evaluated with Dr. Toth.
[2018-06-07] MEDS: Enoxaparin Sodium 40 MG/0.4 ML SYRINGE SC SCH (21:28)
[2018-06-07] MEDS: cefTRIAXone\\ROCEPHIN 2 GM in Sodium Chloride 0.9% 100 ML IVPB SCH (21:28)
[2018-06-08] MEDS: Acetaminophen 500 MG TAB PO SCH ×5 (01:00→23:50)
[2018-06-08] MEDS: traMADol HCl 50 MG TAB PO SCH ×5 (01:01→23:50)
[2018-06-08] MEDS: Ibuprofen 600 MG TAB PO SCH ×3 (01:02→18:01)
[2018-06-08 06:02] LABS: Anion Gap 12 mmol/L (10-20); BUN (Urea Nitrogen) 14 mg/dL (8.4-25.7); Calc. Creatinine Clearance 114 mL/min (70-130); Calcium 7.9 mg/dL (7.8-10.44); Carbon Dioxide 21 mmol/L (22-29); Chloride 110 mmol/L (98-107); Estimated GFR-MDRD Greater than 90; Glucose 94 mg/dL (70-105); Magnesium 2.1 mg/dL (1.6-2.6); Potassium 3.7 mmol/L (3.5-5.1); Sodium 139 mmol/L (136-145)
[2018-06-08] MEDS: Famotidine 20 MG TAB PO SCH ×2 (08:03→21:53)
[2018-06-08] MEDS: Gabapentin 300 MG CAP PO SCH ×3 (08:03→21:53)
[2018-06-08] MEDS: Docusate 100 MG CAP PO SCH (08:03)
[2018-06-08] MEDS: Tamsulosin HCl 0.4 MG CAP PO SCH (08:03)
[2018-06-08] MEDS: Senokot 8.6 MG TAB PO SCH (08:03)
[2018-06-08] MEDS: Nicotine 21 MG PATCH TD SCH (08:03)
[2018-06-08] MEDS: Polyethylene Glycol 3350 17 GM Packet PO SCH (10:08)
[2018-06-08] MEDS: Cyclobenzaprine 10 MG TAB PO PRN (10:12)
--- NOTE | 2018-06-08 13:50 | PRG ---
DATE OF SERVICE: 06/08/2018 SUBJECTIVE: This is a 57-year-old male, status post fall from ladder. The patient had an open femur fracture that is now postop day #3 status post final fixation of the mid femur fracture and postop d ay #5 status post fixation of the proximal femur fracture. There were no acute overnight events. Up on our evaluation, the patient states that the pain is well controlled and the eye patch is working t o help improve his stability. OBJECTIVE: VITAL SIGNS: Temperature 97.8, pulse 62, respirations 18, O2 sat 99% on room air, blood pressure 148 /82. GENERAL: Elderly-appearing male in no acute distress, sitting in a chair, out of bed. PULMONARY: Normal work of breathing. Symmetric rise. CARDIOVASCULAR: Regular rate and rhythm. GASTROINTESTINAL: Abdomen is soft, nontender, nondistended. MUSCULOSKELETAL: Left wound VAC is in place. NEUROLOGIC: No focal deficit is noted. LABORATORY FINDINGS: Sodium 139, potassium 3.7, chloride 110, carbon dioxide 21, BUN 14, creatinine 0.81, phosphorus 3.0, magnesium 2.1. ASSESSMENT: 1. Status post fall from ladder. 2. Acute traumatic pain. 3. Chin laceration. 4. Concussion, improved. 5. Open left femur fracture, status post operative repair, postoperative day #3. 6. Left femoral neck fracture, status post repair, postoperative day #5. 7. Adrenal insufficiency, resolved. 8. Electrolyte abnormality, resolved. 9. Diplopia, persistent. PLAN: I have discussed the case with Dr. Paige from Orthopedic Surgery. The patient may be able to transition to wet-to-dry dressings with daily wound care. He will discuss this plan with the [facility] Care team. His last day dose of IV antibiotics is today. Once patient's family has been trained with wound care and he is cleared by Orthopedic Surgery, he will be a candidate for discharge. He wi ll need outpatient followup with Ophthalmology. Plan of care was discussed with patient and family a t bedside, and all questions were answered at the time of this dictation. The patient was seen and e valuated with Dr. Toth.
[2018-06-08] MEDS: Enoxaparin Sodium 40 MG/0.4 ML SYRINGE SC SCH (21:53)
[2018-06-08] MEDS: cefTRIAXone\\ROCEPHIN 2 GM in Sodium Chloride 0.9% 100 ML IVPB SCH (21:54)
[2018-06-09] MEDS: Ibuprofen 600 MG TAB PO SCH ×2 (01:57→10:08)
[2018-06-09] MEDS: traMADol HCl 50 MG TAB PO SCH ×2 (05:51→11:48)
[2018-06-09] MEDS: Acetaminophen 500 MG TAB PO SCH ×2 (05:52→11:49)
[2018-06-09] MEDS: Polyethylene Glycol 3350 17 GM Packet PO SCH (09:21)
[2018-06-09] MEDS: Docusate 100 MG CAP PO SCH ×2 (09:21→10:15)
[2018-06-09] MEDS: Senokot 8.6 MG TAB PO SCH ×2 (09:21→10:14)
[2018-06-09] MEDS: Tamsulosin HCl 0.4 MG CAP PO SCH (09:22)
[2018-06-09] MEDS: Gabapentin 300 MG CAP PO SCH (09:22)
[2018-06-09] MEDS: Nicotine 21 MG PATCH TD SCH (09:22)
[2018-06-09] MEDS: Famotidine 20 MG TAB PO SCH (10:15)
[2018-06-09] MEDS ORDERED: Bisacodyl 10 MG SUPP PR SCH (11:15)
--- NOTE | 2018-06-09 13:09 | DIS ---
DATE OF ADMISSION: 06/03/2018 DATE OF DISCHARGE: 06/09/2018 ADMITTING PHYSICIAN: Dr. Prashant Toth. DISCHARGING PHYSICIAN: Dr. Prashant Toth. CONSULTING PHYSICIAN: Dr. Saxena, Orthopedics. REASON FOR HOSPITALIZATION: Fall from ladder. HOSPITAL DIAGNOSES: 1. Status post fall, approximately 12 feet from ladder. 2. 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 3. Complete displaced, angulated, class 3B open left femur fracture. 4. Nondisplaced left femoral neck fracture. 5. Acute blood loss anemia. 6. A 3 cm chin laceration. PROCEDURES: 1. Date 06/03/2018, surgeon, Dr. Saxena, A. Open reduction and application of spanning external fixator, left femur. B. Percutaneous screw fixation of left femoral neck. C. Irrigation and debridement of left open femur fracture including skin, subcutaneous tissue, muscl e, and bone. D. Antibiotic B-pouch creation for left thigh wound. Please refer to Dr. Saxena' operative report for complete details. 2. Date 06/05/2018, surgeon, Dr. Saxena, A. Retrograde IM nail stabilization of left femoral shaft. B. Irrigation and debridement of grade 3 open left femoral shaft fracture. C. Removal of external fixator, left femur. D. Application of wound VAC to left anterior thigh wound. Please refer to Dr. Saxena' operative r eport for complete details. THERAPY: The patient will not have outpatient therapy secondary to funding status. DIET: Regular. EQUIPMENT: 1. Crutches. 2. Walker. FOLLOWUP: 1. Dr. Saxena, 2 weeks. 2. Ophthalmology, patient should schedule outpatient followup appointment. 3. Dr. Toth as needed. BRIEF HISTORY OF HOSPITALIZATION: Mr. 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 He sustained a brief loss of consciousness. He was transported to [facility] where workup identified a traumatic brain injury with cerebral concussion, left open femur fracture, and lacerations. Laceration was repaired in the ER. He was admitted to the hospital by [facility]. Orthopedic consult was obtained. Dr. Saxena took the patient to the operating [facility] for fixation of fractures on 06/03/2018 and then again on 06/05/2018. He mobilized with physical a nd occupational therapy. Case management was consulted for discharge planning. Due to patient's fun ding status, he was not a candidate for discharge to inpatient rehabilitation. He initially had a wo und VAC on left thigh wound; however, this was transitioned to wet-to-dry dressings in anticipation o f him discharging to home with his sons and his brother. He was taught wound care. On the day of [facility] when his family arrived, they were also taught wound care. He did have some diplopia, which improved over the course of his hospitalization. He is to follow up with ophthalmology on an outpati ent basis. He was given discharge instructions, followup information, and strict return precautions. He may follow up with [facility]uma Services in a p.r.n. fashion. The patient was seen and examined with Dr. Toth, who agrees with plan for discharge.
[2018-06-09 14:09] VITALS: BP 131/79; TEMP 97.8
[2018-06-10] MEDS ORDERED: Bisacodyl 10 MG SUPP PR SCH ×2 (09:00)
== END 2018-06-09 14:40 | disposition home or self-care (01) | DRG 481 ==
LOC: ERS 14:26 → SURG A 19:28
PROVIDERS: ADMIT Surgery; ATTEND Surgery
PROC: 0QH Lower Bones, Insertion (ICD-10-PCS; principal; 2018-06-03)
PROC: 0WQ2XZZ Repair Face, External Approach (ICD-10-PCS; 2018-06-03)
PROC: 0QS734Z Reposition Left Upper Femur with Internal Fixation Device, Percutaneous Approach (ICD-10-PCS; 2018-06-03)
PROC: 0QS906Z Reposition Left Femoral Shaft with Intramedullary Internal Fixation Device, Open Approach (ICD-10-PCS; 2018-06-05)
PROC: 0SP Lower Joints, Removal (ICD-10-PCS; 2018-06-05)
PROC: 3E0U029 Introduction of Other Anti-infective into Joints, Open Approach (ICD-10-PCS; 2018-06-05)
DX: S72.132 Displaced apophyseal fracture of left femur (principal); S06.0X9A Concussion with loss of consciousness of unspecified duration, initial encounter; D62 Acute posthemorrhagic anemia; E27.40 Unspecified adrenocortical insufficiency; S72.002A Fracture of unspecified part of neck of left femur, initial encounter for closed fracture; W11.XXXA Fall on and from ladder, initial encounter; S01.81XA Laceration without foreign body of other part of head, initial encounter; R40.2412 Glasgow coma scale score 13-15, at arrival to emergency department; F17.210 Nicotine dependence, cigarettes, uncomplicated; E83.51 Hypocalcemia; H53.2 Diplopia
CPT/HCPCS: 36415; 70450; 71045; 71260; 72125; 72170; 74177; 76001; 80048; 82330; 82435; 82533; 82565; 82803; 82947; 83605; 83735; 84100; 84132; 84295; 85025; 85610; 85730; 86850; 86900; 86901; 90471; 90715; 96365; 96367; 96375; C1713; C1769; G0390; G8978-GP-CM; G8979-GP-CK; G8987-GO-CJ; G8988-GO-CJ; G8989-GO-CJ; J0690; J0696; J1100; J1580; J1650; J1720; J1885; J2001; J2250; J2270; J2405; J2540; J2704; J3010; J3260; J7050